=== PATIENT | female | born 1970 | race Asian ===

== ENCOUNTER 2025-05-02 13:14 | Emergency (ER) | payer OTHER, SELFPAY ==
[2025-05-02 13:24] VITALS: BP 111/52
[2025-05-02 13:30] LABS: Glucose - Point of Care 106 mg/dl (70-99)
--- NOTE | 2025-05-02 15:13 | ED.GENMED ---
History of Present Illness
General
Chief Complaint: Abdominal Pain
Source: patient and spouse
Exam Limitations: none
Time Seen by Provider: 05/02/25 14:58
Nursing documentation reviewed up to this point in time: agreed with
History of Present Illness
History of Present Illness:
55-year-old female with no past medical history is here for sudden onset of right flank pain this morning, gradually worsening, pain is now 9/10, she vomited once prior to arrival. She denies fever or chills. She does feel nauseous
Past History
Past History
ED Past Medical History: None
ED Past Surgical History: Gynecological
Social History
Tobacco: Non-smoker
Alcohol: None
Personal:
Living: with family
Review of Systems
Review of Systems
Allergies reviewed?: Yes
All Other Systems: ROS reviewed and negative except as documented in HPI and ROS
Constitutional: Denies fever or chills
ABD/GI: Reports nausea and vomiting
: Reports flank pain (right flank pain); Denies dysuria or bleeding
Phy Exam
Physical Exam
Physical Exam:
GENERAL: No acute distress. A&Ox3.
CONSTITUTIONAL: Afebrile.
EYES: clear, conjunctivae normal
ENMT: moist mucus membranes, Pharynx nl
RESPIRATORY: Regular respirations, nonlabored, lungs clear.
CARDIOVASCULAR: Regular rate and rhythm, no murmurs, no rubs.
GI: Soft, nontender, normal BS, R flank tenderness
MUSCULOSKELETAL: Moves with ease. Well perfused.
SKIN: Warm, dry, pink
PSYCH: Anxious mood and affect. Well kept, interactive and appropriate
NEUROLOGIC: Awake, alert and oriented. No focal neurological deficits
Course
Orders/Labs/Results
Orders:
Orders
05/02/25 13:29
Electrocardiogram (*1) Urgent
Reason for Study: Chest Pain
EKG- Treatment ONCE
05/02/25 15:02
0.9% Sodium Chloride 1000 ml [Nss] 1,000 ml IV BOLUS
HYDROmorphone [Dilaudid] 1 mg IV NOW STA
05/02/25 15:03
CT Abd/pel Without Iv Or Oral Urgent
Comment:
Reason For Exam: R flank pain
05/02/25 15:14
Ondansetron Injectable [Zofran] 4 mg IV NOW STA
05/02/25 15:16
Complete Blood Count/With Diff Urgent
Comprehensive Metabolic Panel Urgent
Urinalysis Reflex To Culture Urgent
Date Specimen was Collected: 05/02/25
Time Specimen was Collected: 15:11
Urine Microscopic Reflex Cult Urgent
05/02/25 16:30
Ketorolac [Toradol] 15 mg IV NOW STA
Abnormal Lab Results
05/02/25 05/02/25
13:28 15:16
WBC 11.7 H 10^3/uL
(4.8-10.8)
RBC 4.10 L 10^6/uL
(4.20-5.40)
MCH 31.2 H pg
(27.0-31.0)
RDW 11.0 L %
(11.5-14.5)
Abs Immat Gran (auto) 0.1 H 10^3/uL
(0-0.05)
Absolute Neuts (auto) 10.8 H 10^3/uL
(1.4-6.5)
Absolute Lymphs (auto) 0.5 L 10^3/uL
(1.2-3.4)
Neutrophils % 92.3 H %
(42.2-75.2)
Lymphocytes % 4.3 L %
(20.5-51.1)
Creatinine 0.5 L mg/dL
(0.6-1.0)
Glucose 119 H mg/dl
(70-99)
Urine Ketones 3+ A
(Negative)
Urine Bacteria (Reflex) Few A
(Negative)
Urine Albumin (Reflex) 2+ A
(Neg - Trace)
POC Glucose 106 H mg/dl
(70-99)
05/02/25 15:16
05/02/25 15:16
Vital Signs
Initial and Last Documented VS:
Initial Vital Signs
Temp Pulse Resp BP Pulse Ox
98.4 F 75 20 111/52 100
05/02/25 13:24 05/02/25 13:24 05/02/25 13:24 05/02/25 13:24 05/02/25 13:24
Last Documented Vital Signs
Temp Pulse Resp BP Pulse Ox
98.4 F 74 18 90/63 100
05/02/25 13:24 05/02/25 17:28 05/02/25 17:28 05/02/25 18:15 05/02/25 17:28
MDM/Problems Addressed
Differential Diagnosis Includes:
kidney stone, UTI, pyelonephritis
MDM/Problems Addressed:
55-year-old female with no past medical history is here for sudden onset of right flank pain this morning, gradually worsening, pain is now 9/10, she vomited once prior to arrival. She denies fever or chills. She does feel nauseous
Afebrile, moderately uncomfortable
4:30 p.m.
CBC: Mild leukocytosis consistent with reactive response
CMP normal
U/A normal
CT scan: 2 mm non obstructing stone at UV junction
Copy of report given to pt and
Pt much more comfortable after Dilaudid, pain coming back, now 8/10, Toradol ordered
5:30 p.m.
Much more comfortable. Comfortable going home.
Rx for pain med sent to her pharmacy
Referred to Urology
*Critical Care Note
Total Time (30-74mins, 75-104mins- exclusive of procedures): Not Applicable
ED Attending Note
-
Portions of this chart may have been created with voice recognition software.� Occasional wrong word or��sound alike� substitutions may have occurred due to the inherent limitations of voice recognition software.
Discharge Plan
Departure
Patient Disposition: Home (Routine Discharge)
Date of Disposition: 05/02/25
Time of Disposition: 17:38
Patient with high blood pressure during this ER visit?: No
Condition: Good
Discharge Problem:
Calculus of distal right ureter
Instructions: Kidney Stones (DC)
Prescriptions:
New
hydrocodone-acetaminophen 5-325 mg tablet
1 tab PO Q4H PRN (Reason: Pain) Qty: 8 0RF
Referrals:
NONE,* [Family Provider, Internal Medicine]
Rito Quiroz MD [Active, Urology] - Next open appointment
Activity Restrictions/Additional Instructions:
As we discussed, drink plenty of fluids over the next day or 2
Ibuprofen 600 mg as needed for mild to moderate pain and use the [place] (Hydrocodone) if needed for worse pain.
I sent a prescription to your pharmacy.
Call tomorrow to make an appointment to see the urologist
Strain your urine and if you catch the stone put in the container provided
Return here immediately for worsening pain, fever/chills or feeling sicker in any way.
Interventions
Interventions:
*Risk Screen - Suicide Last Done: 05/02/25 13:24
*General Assessment Last Done: 05/02/25 13:24
*Neglect/Abuse Screening Last Done: 05/02/25 13:24
*Nursing Disposition Last Done: 05/02/25 18:16
AC-Shrjwy-Pmylugmyvo Assessment Last Done: 05/02/25 15:20
Discharge Date and Time
Discharge Date/Time: 05/02/25 18:16
Print Language: YORUBA
[2025-05-02] MEDS: DILAUDID 1 MG IV (15:14)
[2025-05-02] MEDS: NSS 1000 IV (15:14)
[2025-05-02] MEDS: ZOFRAN 4 MG IV (15:31)
[2025-05-02 15:43] LABS: % Basophils 0.2 % (0-2); % Immature Granulocytes 0.4 % (0-0.5); % Lymphocytes 4.3 % (20.5-51.1); % Monocytes 2.8 % (1.7-9.3); % Neutrophils 92.3 % (42.2-75.2); Absolute Immature Granulocytes 0.1 10^3/uL (0-0.05); Absolute Lymphocytes 0.5 10^3/uL (1.2-3.4); Absolute Monocytes 0.3 10^3/uL (0.1-0.6); Absolute Neutrophils 10.8 10^3/uL (1.4-6.5); Hemoglobin 12.8 g/dL (12.0-16.0); Mean Corp Hgb Conc. 34.6 g/dL (33.0-37.0); Mean Corpuscular Hgb 31.2 pg (27.0-31.0); Mean Corpuscular Volume 90.2 fL (81.0-99.0); Mean Platelet Volume 9.7 fL (7.4-10.4); Nucleated Red Blood Cells % 0 %; Platelet Count 278 10^3/uL (130-400); White Blood Cell Count 11.7 10^3/uL (4.8-10.8)
[2025-05-02 15:47] LABS: Urine Albumin 2+ (Neg - Trace); Urine Bilirubin Negative (Negative); Urine Character Clear (Clear); Urine Color Yellow; Urine Glucose Negative (Negative); Urine Ketone 3+ (Negative); Urine Leukocyte Negative (Negative); Urine Nitrite Negative (Negative); Urine Occult Blood Negative (Negative); Urine Urobilinogen Negative (Neg - 1+)
[2025-05-02 15:56] LABS: ALT (SGPT) 15 U/L (0-35); AST (SGOT) 24 U/L (14-36); Albumin 4.6 g/dl (3.5-5.0); Alkaline Phosphatase 45 U/L (38-126); Blood Urea Nitrogen 15 mg/dl (7-17); Calcium 9.4 mg/dl (8.4-10.2); Carbon Dioxide 23 mmol/L (22-30); Chloride 107 mmol/L (98-107); Glucose 119 mg/dl (70-99); Potassium 3.9 mmol/L (3.5-5.1); Sodium 138 mmol/L (135-145); Total Bilirubin 0.5 mg/dl (0.2-1.3); Total Protein 7.2 g/dl (6.3-8.2); eGFR > 60.00
[2025-05-02 16:00] LABS: Urine Bacteria Few (Negative); Urine Mucus Few; Urine Red Blood Cell 0-2 /HPF (0-2); Urine Squamous Cell 0-2 /LPF (Few); Urine White Cell 0-2 /HPF (0-5)
[2025-05-02] MEDS: TORADOL 15 MG IV (16:41)
[2025-05-02 18:15] VITALS: BP 90/63
== END 2025-05-02 18:16 | disposition home or self-care (01) ==
LOC: EMR 13:14
PROVIDERS: Registered Nurse; EMERGENCY PHYSICIAN Emergency Medicine
DX: N20.1 Calculus of ureter (principal); D72.829 Elevated white blood cell count, unspecified
CPT/HCPCS: 99284; 96374; 96375; 74176; 80053; 81003; 81015; 82962; 85025; 93005

== ENCOUNTER → 2025-11-15 08:04 | Outpatient (REF) | payer OTHER, SELFPAY | LOC: HWRAD 08:04 | PROVIDERS: ATTENDING PHYSICIAN Physician Assistant | DX: Z00.00 Encounter for general adult medical examination without abnormal findings (principal); Z12.39 Encounter for other screening for malignant neoplasm of breast; Z13.820 Encounter for screening for osteoporosis | CPT/HCPCS: 77063; 77067 ==